=== PATIENT | male | born 1965 | race Caucasian/White ===

== ENCOUNTER 2016-10-10 06:59 | Day surgery (SDC) | payer OTHER ==
[~2016-10-10] VITALS: Ht 172.7 cm; Wt 69.5 kg
[~2016-10-10 06:59] MED LIST: CHOL100018 PO; FISH1CAP59 PO; MELO-273 PO; MULT-933 PO
[2016-10-10] MEDS ORDERED: LR 1,000 ML IV SCH (07:00)
[2016-10-10] MEDS ORDERED: LIDOCAINE 1% (10mg/ml) 2ml SDV INJ ONE (07:00)
--- OUTSIDE RECORDS SUMMARY | 2016-10-10 07:04 | XMS REPORT | Referral Summary ---
Author Organization Unknown Address Unknown Phone Unavailable Care Team Providers Care Bias Cutter Name Role Phone Louise Kohler Primary Care Physician [phone] Encounter VC Date(s): 11/02/14 - 11/02/14 [facility] [place], Card[facility] [address] [place] [address] [place] [address] Discharge Diagnosis: Sleep apnea Discharge Diagnosis: Chest pain Discharge Diagnosis: Dyslipidemia Discharge Diagnosis: Fatigue Discharge Disposition: Home or Self Care Attending Physician: Giovanni Chandler MD Admitting Physician: Giovanni Chandler MD Referring Physician: Brenton Kohler MD Vital Signs Most recent to 1 oldest [Reference Range]: Peripheral Pulse 60 bpm Rate [60-100 bpm] (11/02/14 9:09 AM) Blood Pressure 104/72 mmHg [90-140/60-90 mmHg] (11/02/14 9:09 AM) Problem List Condition Effective Dates Status Health Status Informant Allergic Active rhinitis(Confirmed) Xerosis of Active skin(Confirmed) Atrophoderma Active (disorder)(Confirmed ) Atypical chest pain 07/2010 Active - due to stress(Confirmed) Benign neoplasm of Active skin (disorder)(Confirmed ) Capillary Active hemangioma(Confirmed ) Circumcision(Confirm Resolved ed) Epididymectomy(Confi Resolved rmed) Epididymitis(Confirm Active ed) Large sun Active exposure/2-3 serious sunburns/uses sunscreen(Confirmed) History of Active BPH(Confirmed) Hemangioma Active (disorder)(Confirmed ) History of inguinal Resolved hernia repair(Confirmed) Hyperglyceridemia(Co Active nfirmed) Erectile Active dysfunction(Confirme d) Lentigo(Confirmed) Active Metatarsalgia of Active right foot(Confirmed) Mitral valve Active disorders(Confirmed) Mixed Active hyperlipidemia(Confi rmed) Obstructive sleep Active apnea(Confirmed) Orchitis(Confirmed) Active Scrotal pain - Active Right(Confirmed) prostatism(Confirmed Active ) Intermittent Rectal 2012 Active bleeding(Confirmed) Right inguinal 1974 Active hernia(Confirmed) Sexually transmitted Active disease(Confirmed) Nevus(Confirmed) Active Skin tag(Confirmed) Active Sleep Resolved apnea(Confirmed) Solar Active degeneration(Confirm ed) Tubulovillous < 08/13/12 Resolved adenoma(Confirmed) Chicken Active pox(Confirmed) Allergies, Adverse Reactions, Alerts Substance Reaction Severity Status ciprofloxacin Active levofloxacin Active Medications Aleve mg, Oral, 0 Refill(s) Start Date: 11/02/14 Status: Ordered Results No data available for this section Immunizations Vaccine Date Refusal Reason tetanus/diphth/pertuss (Tdap) adult/adol 10/26/09 tetanus-diphth toxoids (Td) adult/adol 10/22/94 Procedures Procedure Date Related Diagnosis Body Site Colonoscopy1 2012 Epididymectomy 2002 Repair of inguinal hernia - RIGHT 1973 Circumcision 1c-scope=tubulovillous adenoma wi high grade dysplasia, tubular adenoma w lo grade dysplasia, diverticula, repeat in 3 years. Social History Social History Type Response Smoking Status Never smoker Assessment and Plan Extracted from: Title: Office Visit Note Author: Toshia Phillips NP Date: 11/02/14 Assessment/Plan 1.Chest pain Aytypical; improved with activity. Likely stress/anxiety related. Pt has had similar symptoms in the past; negative treadmill stress test 2010. Check treadmill stress test in the next 1-2 months as patient reports symptoms have increased in frequency; notify our office if cp worsens. 2.Fatigue Likely related to SKY as he is not wearing CPAP routinely. 3.Sleep apnea Recommend wearing CPAP daily as he can tolerate. 4.Dyslipidemia LDL 123, October 2013. Check FLP at his convenience, same day as stress testing. Routine exercise of 30-45 minutes 4-5 days/week. Low fat diet. F/u in one year. Addendum Feels well overall, though he has had some chest pains that has made him think that he by Chandler, should see me sooner. Episodes of chest pain that seems to occur when he is stressed, but Giovanni Coppola MD not present with activity. He is more active now, doing his farming work. No CP, SOB, on palpitations or lightheadedness. Does experience fatigue, and has not been using his CPAP October 2014 consistently. When he does get chest pain, he will do things like jumping jacks and push 15:23:30 ups that possibly relieves his pain. CDT VSS NAD, Cor: RRR S1S2, Lungs: CTAB, abd nt nd soft, Ext no cce Imp: -Chest pain, atypical. However, it does seem to be worse recently. Check TMST. DDx stress related CP, musculoskeletal pain. Discussed typical features of angina if symptoms become more typical, he is to call me immediately. -Dyslipidemia, encouraged heart healthy diet and exercise. Check chol profile. -Fatigue, likely related to SKY -SKY, encouraged CPAP use as much as possible. Referrals to Other Providers Referred by: Toshia Phillips NP
--- OUTSIDE RECORDS SUMMARY | 2016-10-10 07:04 | XMS REPORT | Referral Summary ---
Author Author [facility] Organization [facility] Address Unknown Phone Unavailable Care Team Providers Care Cocoa Bean Roaster Helper Name Role Phone Louise Kohler Primary Care Physician [phone] Encounter Date(s): 12/27/14 - 12/27/14 [facility] [place] [address] [place] [address] [place] [address] Discharge Diagnosis: Fatigue Discharge Diagnosis: ED (erectile dysfunction) Discharge Diagnosis: Special screening, prostate cancer Discharge Disposition: 01-Home or Self Care Attending Physician: Nuno Up JR, MD Vital Signs Most recent to 1 oldest [Reference Range]: Peripheral Pulse 68 bpm Rate [60-100 bpm] (12/27/14 9:15 AM) Blood Pressure 126/74 mmHg [90-140/60-90 mmHg] (12/27/14 9:15 AM) SpO2 98 % (12/27/14 9:15 AM) Problem List Condition Effective Dates Status [...] Intermittent Rectal 2012 Active bleeding(Confirmed) Right inguinal 1973 Active hernia(Confirmed) Sexually transmitted Active disease(Confirmed) Nevus(Confirmed) Active Skin tag(Confirmed) Active Sleep Resolved apnea(Confirmed) Solar Active degeneration(Confirm ed) Tubulovillous < 08/13/12 Resolved adenoma(Confirmed) Chicken Active pox(Confirmed) Allergies, Adverse Reactions, Alerts Substance Reaction Severity Status ciprofloxacin Active levofloxacin Active Medications Aleve mg, Oral, 0 Refill(s) Start Date: 11/02/14 Status: Ordered Split Night Sleep Study Split Night Sleep Study, See Instructions, DX: Sleep Apnea 780.57 FAX TO [phone], # 1 Each, 0 Refill(s) Start Date: 03/14/15 Status: Ordered Results Chemistry Most recent to 1 oldest [Reference Range]: Testosterone Tot 689 ng/dL [221-716 ng/dL] (12/27/14 9:35 AM) PSA (wihout Reflex 1.3 ng/mL 1 Free) [0.0-3.5 (12/27/14 9:10 AM) ng/mL] TSH with Reflex Free 0.59 T4 [0.35-4.94] (12/27/14 9:35 AM) 1Result Comment: AUA PSA Best Practice Guidelines: Age-Adjusted PSA Values by Ethnic Group Age Range Asians - Caucasians Americans 40-49 0-2.0 0-2.0 0-2.5 50-59 0-3.0 0-4.0 0-3.5 60-69 0-4.0 0-4.5 0-4.5 70-79 0-5.0 0-5.5 0-6.5 Immunizations Vaccine Date Refusal Reason tetanus/diphth/pertuss (Tdap) adult/adol 10/26/09 tetanus-diphth toxoids (Td) adult/adol 10/22/94 Procedures Procedure Date Related Diagnosis Body Site Collection of venous blood by venipuncture 12/27/14 Colonoscopy1 2012 Epididymectomy 2002 Repair of inguinal hernia - RIGHT 1973 Circumcision 1c-scope=tubulovillous adenoma wi high grade dysplasia, tubular adenoma w lo grade dysplasia, diverticula, repeat in 3 years. Social History Social History Type Response Smoking Status Never smoker Assessment and Plan Extracted from: Title: Ambulatory Patient Education Author: Nuno Up JR, MD Date : 12/27/14 Follow Up With: Where: When: Brenton Kohler [address]; [facility] [place] [address] Business (1) Within 3 to 5 days Comments: Follow Up With: Where: When: Nuno Up [address]; [facility] [place], [place] [address] Business (1) In 6 months 06/28/2015 Comments: Extracted from: Title: Office Visit Note Author: Nuno Up JR, MD Date: 12/27/14 Assessment/Plan ED (erectile dysfunction) I ordered serum testosterone and thyroid function studies today. He has some Cialis at home I told him to take the Cialis 1 Tablet of the 10 mg 2 hours prior to sexual intercourse on an empty stomach. Ordered: Office Visit Level 4 Est 52338 Fatigue Blood works ordered (thyroid function studies and serum testosterone. Ordered: Office Visit Level 4 Est 06771 Testosterone Level Total TSH with Reflex Free T4 Special screening, prostate cancer PSA done today I don't have that report yet Patient instructed to call me on Friday afternoon about the report of the blood tests ordered today. Will have more discussion when the blood work is available this coming Friday afternoon. This was a 30 minute face to face visit with 1/2 of the visit devoted to counseling the patient. afternoon
--- OUTSIDE RECORDS SUMMARY | 2016-10-10 07:04 | XMS REPORT | Referral Summary ---
Author Author [facility] Organization [facility] Address Unknown Phone Unavailable Care Team Providers Care Fitness Assistant Name Role Phone Louise Kohler Primary Care Physician [phone] Encounter Date(s): 07/26/15 - 07/26/15 [facility] [address] [place] [address] Discharge Diagnosis: Acute upper respiratory infection Discharge Disposition: 01-Home or Self Care Attending Physician: Marilyn Butterfield PA-C Admitting Physician: Marilyn Butterfield PA-C Vital Signs Most recent to 1 oldest [Reference Range]: Temperature Tympanic 36.7 degC [36.6-38.1 degC] (07/26/15 10:54 AM) Peripheral Pulse 85 bpm Rate [60-100 bpm] (07/26/15 10:54 AM) Blood Pressure 102/58 mmHg [90-140/60-90 mmHg] (07/26/15 10:54 AM) SpO2 98 % (07/26/15 10:54 AM) Problem List Condition Effective Dates Status [...] Active Right(Confirmed) prostatism(Confirmed Active ) Intermittent Rectal 2013 Active bleeding(Confirmed) Right inguinal 1974 Active hernia(Confirmed) [...] Instructions, DX: Sleep Apnea 780.57 FAX TO [phone], # 1 Each, 0 Refill(s) Start Date: 03/14/15 Status: Ordered Tessalon Perles 100 mg oral capsule 100 mg 1 caps, Oral, TID, as needed for cough, X 7 days, # 21 caps, 0 Refill(s) , Pharmacy: [facility], 1 caps Oral TID,x7 days,PRN:as needed for cough Start Date: 07/26/15 Stop Date: 08/02/15 Status: Ordered Results No data available for [...] Extracted from: Title: Ambulatory Patient Education Author: Marilyn Butterfield PA-C Date : 07/26/15 ENT Upper Respiratory Infection, Adult An upper respiratory infection (URI) is also sometimes known as the common cold. The upper respiratory tract includes the nose, sinuses, throat, trachea, and bronchi. Bronchi are the airways leading to the lungs. Most people improve within 1 week, but symptoms can last up to 2 weeks. A residual cough may last even longer. CAUSES Many different viruses can infect the tissues lining the upper respiratory tract. The tissues become irritated and inflamed and often become very moist. Mucus production is also common. A cold is contagious. You can easily spread the virus to others by oral contact. This includes kissing, sharing a glass, coughing, or sneezing. Touching your mouth or nose and then touching a surface, which is then touched by another person, can also spread the virus. SYMPTOMS Symptoms typically develop 1 to 3 days after you come in contact with a cold virus. Symptoms vary from person to person. They may include: Runny nose. Sneezing. Nasal congestion. Sinus irritation. Sore throat. Loss of voice (laryngitis). Cough. Fatigue. Muscle aches. Loss of appetite. Headache. Low-grade fever. DIAGNOSIS You might diagnose your own cold based on familiar symptoms, since most people get a cold 2 to 3 times a year. Your caregiver can confirm this based on your exam. Most importantly, your caregiver can check that your symptoms are not due to another disease such as strep throat, sinusitis, pneumonia, asthma, or epiglottitis. Blood tests, throat tests, and X-rays are not necessary to diagnose a common cold, but they may sometimes be helpful in excluding other more serious diseases. Your caregiver will decide if any further tests are required. RISKS AND COMPLICATIONS You may be at risk for a more severe case of the common cold if you smoke cigarettes, have chronic heart disease (such as heart failure) or lung disease ( such as asthma), or if you have a weakened immune system. The very young and very old are also at risk for more serious infections. Bacterial sinusitis, middle ear infections, and bacterial pneumonia can complicate the common cold. The common cold can worsen asthma and chronic obstructive pulmonary disease ( COPD). Sometimes, these complications can require emergency medical care and may be life-threatening. PREVENTION The best way to protect against getting a cold is to practice good hygiene. Avoid oral or hand contact with people with cold symptoms. Wash your hands often if contact occurs. There is no clear evidence that vitamin C, vitamin E, echinacea, or exercise reduces the chance of developing a cold. However, it is always recommended to get plenty of rest and practice good nutrition. TREATMENT Treatment is directed at relieving symptoms. There is no cure. Antibiotics are not effective, because the infection is caused by a virus, not by bacteria. Treatment may include: Increased fluid intake. Sports drinks offer valuable electrolytes, sugars, and fluids. Breathing heated mist or steam (vaporizer or shower). Eating chicken soup or other clear broths, and maintaining good nutrition. Getting plenty of rest. Using gargles or lozenges for comfort. Controlling fevers with ibuprofen or acetaminophen as directed by your caregiver. Increasing usage of your inhaler if you have asthma. Zinc gel and zinc lozenges, taken in the first 24 hours of the common cold, can shorten the duration and lessen the severity of symptoms. Pain medicines may help with fever, muscle aches, and throat pain. A variety of non-prescription medicines are available to treat congestion and runny nose. Your caregiver can make recommendations and may suggest nasal or lung inhalers for other symptoms. HOME CARE INSTRUCTIONS Only take [id number] or prescription medicines for pain, discomfort, or fever as directed by your caregiver. Use a warm mist humidifier or inhale steam from a shower to increase air moisture. This may keep secretions moist and make it easier to breathe. Drink enough water and fluids to keep your urine clear or pale yellow. Rest as needed. Return to work when your temperature has returned to normal or as your caregiver advises. You may need to stay home longer to avoid infecting others. You can also use a face mask and careful hand washing to prevent spread of the virus. SEEK MEDICAL CARE IF: After the first few days, you feel you are getting worse rather than better. You need your caregiver's advice about medicines to control symptoms. You develop chills, worsening shortness of breath, or brown or red sputum. These may be signs of pneumonia. You develop yellow or brown nasal discharge or pain in the face, especially when you bend forward. These may be signs of sinusitis. You develop a fever, swollen neck glands, pain with swallowing, or white areas in the back of your throat. These may be signs of strep throat. SEEK IMMEDIATE MEDICAL CARE IF: You have a fever. You develop severe or persistent headache, ear pain, sinus pain, or chest pain. You develop wheezing, a prolonged cough, cough up blood, or have a change in your usual mucus (if you have chronic lung disease). You develop sore muscles or a stiff neck. Document Released: 12/24/2001 Document Revised: 09/21/2012 Document Reviewed: ExitCare Patient Information 2015 [employer]. This information is not intended to replace advice given to you by your health care provider. Make sure you discuss any questions you have with your health care provider. No follow up information was provided. Extracted from: Title: Office Visit Note- URI Author: Marilyn Butterfield PA-C Date: 07/26 Assessment/Plan Acute upper respiratory infection D/w pt that seems to be viral in nature. He would like to try some Rx cough medication, and will prescribe Tessalon. Continue to push fluids and rest. Call by end of week if not much better. Ordered: Office Visit Level 3 Est 95172 Orders: benzonatate, 100 mg 1 caps, Oral, TID, as needed for cough, X 7 days, # 21 caps, 0 Refill(s), Pharmacy: [facility], 1 caps Oral TID,x7 days,PRN:as needed for cough
--- OUTSIDE RECORDS SUMMARY | 2016-10-10 07:04 | XMS REPORT | Referral Summary ---
Author Author [facility] Organization [facility] Address Unknown Phone Unavailable Care Team Providers Care Clinical Laboratory Science Professor Name Role Phone Louise Kohler Primary Care Physician [phone] Encounter Date(s): 12/27/14 - 12/27/14 [facility] [address] [place] [address] [place] [address] Discharge Diagnosis: Fatigue Discharge Diagnosis: ED (erectile [...] Instructions, DX: Sleep Apnea 780.57 FAX TO [phone], # 1 Each, 0 Refill(s) Start Date: [...] Up With: Where: When: Brenton Kohler [address]; [facility] [place] [address] Business (1) Within 3 to 5 days Comments: Follow Up With: Where: When: Nuno Up [address]; [facility] [place], [place] [address] Business (1) In 6 months 06/28/2015 Comments: [...] stomach. Ordered: Office Visit Level 4 Est 38413 Fatigue Blood works ordered (thyroid function studies and serum testosterone. Ordered: Office Visit Level 4 Est 46041 Testosterone Level Total TSH with Reflex Free [...]
--- OUTSIDE RECORDS SUMMARY | 2016-10-10 07:04 | XMS REPORT | Referral Summary ---
Author Author [facility] [place] Organization [facility] [place] Address Unknown Phone Unavailable Care Team Providers Care Cell Support Operator Name Role Phone Louise Kohler Primary Care Physician [phone] Encounter Date(s): 12/22/14 - 12/22/14 [facility] [place] [address] [place] [address] Discharge Disposition: 01-Home or Self Care Attending Physician: Giovanni Chandler MD Admitting Physician: Giovanni Chandler MD Vital Signs Most recent to 1 oldest [Reference Range]: Peripheral Pulse 76 bpm Rate [60-100 bpm] (12/22/14 10:07 AM) Blood Pressure 115/71 mmHg [90-140/60-90 mmHg] (12/22/14 10:07 AM) Problem List Condition Effective Dates Status [...] Instructions, DX: Sleep Apnea 780.57 FAX TO [phone], # 1 Each, 0 Refill(s) Start Date: 03/14/15 Status: Ordered Results No data available for [...] Smoking Status Never smoker Assessment and Plan No data available for this section
--- OUTSIDE RECORDS SUMMARY | 2016-10-10 07:04 | XMS REPORT | Referral Summary ---
Author Author [facility] Organization [facility] Address Unknown Phone Unavailable Care Team Providers Care Solutions Architect Name Role Phone Louise Kohler Primary Care Physician [phone] Encounter Date(s): 12/27/14 - 12/27/14 [facility] [address] [place] [address] [place] [address] Discharge Diagnosis: Fatigue Discharge Diagnosis: ED (erectile [...] Instructions, DX: Sleep Apnea 780.57 FAX TO [phone], # 1 Each, 0 Refill(s) Start Date: [...] Up With: Where: When: Brenton Kohler [address]; [address] [facility] [place] [address] Business (1) Within 3 to 5 days Comments: Follow Up With: Where: When: Nuno Up [address]; [address] [facility] [place], [place] [address] Business (1) In 6 months 06/28/2015 Comments: [...] stomach. Ordered: Office Visit Level 4 Est 65521 Fatigue Blood works ordered (thyroid function studies and serum testosterone. Ordered: Office Visit Level 4 Est 58556 Testosterone Level Total TSH with Reflex Free [...]
--- OUTSIDE RECORDS SUMMARY | 2016-10-10 07:05 | XMS REPORT | Referral Summary ---
Author Author [facility] Organization [facility] Address Unknown Phone Unavailable Care Team Providers Care Financial Aid Administrator Name Role Phone Louise Kohler Primary Care Physician [phone] Encounter [facility] [id number] Date(s): 07/05/15 - 07/05/15 [facility] [address] [place], [place] [address] Discharge Diagnosis: Nevus Discharge Diagnosis: Lentigines Discharge Diagnosis: Multiple melanocytic nevus Discharge Diagnosis: Itching Discharge Diagnosis: Xerosis of skin Discharge Disposition: 01-Home or Self Care Attending Physician: Eric Mejia MD Admitting Physician: Eric Mejia MD Referring Physician: Brenton Kohler MD Vital Signs No data available for this section Problem List Condition Effective Dates Status Health [...] Instructions, DX: Sleep Apnea 780.57 FAX TO [phone], # 1 Each, 0 Refill(s) Start Date: 03/14/15 Status: Ordered Results No data available for this section Immunizations Vaccine Date Refusal Reason tetanus/diphth/pertuss (Tdap) adult/adol 10/26/09 tetanus-diphth toxoids (Td) adult/adol 10/22/94 Procedures Procedure Date Related Diagnosis Body Site Colonoscopy1 2012 Epididymectomy 2002 Repair of inguinal hernia - RIGHT 1974 Circumcision 1c-scope=tubulovillous adenoma wi high grade dysplasia, tubular adenoma w lo grade dysplasia, diverticula, repeat in 3 years. Social History Social History Type Response Smoking Status Never smoker Assessment and Plan Extracted from: Title: Office Visit Note Author: Eric Mejia MD Date: 07/05/15 Assessment/Plan Itching Lentigines Multiple melanocytic nevus, Nevus Xerosis of skin
--- OUTSIDE RECORDS SUMMARY | 2016-10-10 07:05 | XMS REPORT | Referral Summary ---
Author Author [facility] Organization [facility] Address Unknown Phone Unavailable Care Team Providers Care Snow Plow Tractor Operator Name Role Phone Louise Kohler Primary Care Physician [phone] Encounter Date(s): 07/03/16 - 07/03/16 [facility] [place] [address] [place] [address] Discharge Disposition: 01-Home or Self Care Attending Physician: Brenton Kohler MD Admitting Physician: Brenton Kohler MD Vital Signs Most recent to 1 oldest [Reference Range]: Blood Pressure 104/64 mmHg [90-140/60-90 mmHg] (07/03/16 1:42 PM) Problem List Condition Effective Dates Status Health [...] 0 Refill(s) Start Date: 11/02/14 Status: Ordered Mobic 7.5 mg oral tablet 7.5 mg 1 tabs, Oral, BID, # 60 tabs, 2 Refill(s), Pharmacy: [facility] # [id number], 1 tabs Oral BID Start Date: 07/03/16 Status: Ordered multivitamin Daily, 0 Refill(s) Start Date: 01/02/16 Status: Ordered Results No data available for this section Immunizations Given and Recorded Vaccine Date Status Refusal Reason tetanus/diphth/pertuss (Tdap) adult/adol 10/26/09 Recorded tetanus-diphth toxoids (Td) adult/adol 10/22/94 Recorded Procedures Procedure Date Related Diagnosis Body Site Colonoscopy 08/13/12 Colonoscopy1 2012 Epididymectomy 2002 Repair of inguinal hernia - RIGHT 1974 Circumcision 1c-scope=tubulovillous adenoma wi high grade dysplasia, tubular adenoma w lo grade dysplasia, diverticula, repeat in 3 years. Social History Social History Type Response Smoking Status Never smoker Assessment and Plan No data available for this section
--- OUTSIDE RECORDS SUMMARY | 2016-10-10 07:05 | XMS REPORT | Referral Summary ---
Author Author [facility] Organization [facility] Address Unknown Phone Unavailable Care Team Providers Care Student Services Vice President Name Role Phone Louise Kohler Primary Care Physician [phone] Encounter Date(s): 12/27/14 - 12/27/14 [facility] [address] [place] [address] [place] [address] Discharge Diagnosis: Fatigue Discharge Diagnosis: ED (erectile [...] Instructions, DX: Sleep Apnea 780.57 FAX TO [phone], # 1 Each, 0 Refill(s) Start Date: [...] Up With: Where: When: Brenton Kohler [address]; Via [facility] [place] [address] Business (1) Within 3 to 5 days Comments: Follow Up With: Where: When: Nuno Up [address]; Via [facility] [place], [place] [address] Business (1) In 6 months 06/28/2015 Comments: [...] stomach. Ordered: Office Visit Level 4 Est 16368 Fatigue Blood works ordered (thyroid function studies and serum testosterone. Ordered: Office Visit Level 4 Est [id number] Testosterone Level Total TSH with Reflex Free [...]
--- OUTSIDE RECORDS SUMMARY | 2016-10-10 07:05 | XMS REPORT | Referral Summary ---
Author Author [facility] Organization [facility] Address Unknown Phone Unavailable Care Team Providers Care Formation Testing Operator Name Role Phone Louise Kohler Primary Care Physician [phone] Encounter Date(s): 12/22/14 - 12/22/14 [facility] [address] [place] [address] Discharge Disposition: 01-Home or Self Care Attending [...] Instructions, DX: Sleep Apnea 780.57 FAX TO [phone], # 1 Each, 0 Refill(s) Start Date: [...]
--- OUTSIDE RECORDS SUMMARY | 2016-10-10 07:05 | XMS REPORT | Referral Summary ---
Author Author [facility] Organization [facility] Address Unknown Phone Unavailable Care Team Providers Care Inspector Outside Production Name Role Phone Louise Kohler Primary Care Physician [phone] Encounter Date(s): 07/19/16 - 07/19/16 [facility] [address], [place] [address] Discharge Diagnosis: Itching Discharge Diagnosis: Capillary hemangioma Discharge Diagnosis: Lentigines Discharge Diagnosis: Multiple benign nevi Discharge Diagnosis: Multiple melanocytic nevus Discharge Disposition: 01-Home or Self Care Attending [...] BID, # 60 tabs, 2 Refill(s), Pharmacy: [facility] # [id number], 1 tabs Oral BID Start Date: 07/03/16 Status: Ordered multivitamin Daily, 0 Refill(s) Start Date: 01/02/16 Status: Ordered triamcinolone 0.025% topical cream See Instructions, apply qd prn itch, # 454 mg, 1 Refill(s), Pharmacy: [facility] Start Date: 07/19/16 Status: Ordered Results No data available for [...] Visit Note Author: Eric Mejia MD Date: 07/19/16 Assessment/Plan Capillary hemangioma Itching Lentigines Multiple benign nevi, Multiple melanocytic nevus
--- OUTSIDE RECORDS SUMMARY | 2016-10-10 07:05 | XMS REPORT | Referral Summary ---
Author Author [facility] Organization [facility] Address Unknown Phone Unavailable Care Team Providers Care Telegraph Plant Maintainer Name Role Phone Louise Kohler Primary Care Physician [phone] Encounter Date(s): 12/27/14 - 12/27/14 [facility] [address] [place] [address] [place] [address] Discharge Diagnosis: Fatigue Discharge Diagnosis: [...] Instructions, DX: Sleep Apnea 780.57 FAX TO [phone], # 1 Each, 0 Refill(s) Start Date: [...] [address]; Via [facility] [place] [address] Business (1) Within 3 to 5 days Comments: Follow Up With: Where: When: [facility] [address]; Via [facility] [place], [place] [address] Business (1) In 6 months 06/28/2015 Comments: [...] stomach. Ordered: Office Visit Level 4 Est [id number] Fatigue Blood works ordered (thyroid function studies and serum testosterone. Ordered: Office Visit Level 4 Est [id number] Testosterone Level Total TSH with Reflex Free [...]
--- OUTSIDE RECORDS SUMMARY | 2016-10-10 07:05 | XMS REPORT | Continuity of Care Document ---
Author Author [facility] Organization [facility] Address Unknown Phone Unavailable Allergies Active Description Code Type Severity Reaction Onset Reported/Identified Relationship to Patient Clinical Status Yes ciprofloxacin NKMA N/A N/A 11/10/2013 Yes levofloxacin NKMA N/A N/A 11/10/2013 Medications Problems Procedures Results Encounters ACCT No. Visit Date/Time Discharge Status Pt. Type Provider Facility Loc./Unit Complaint [id number] 08/24/2013 10:08:00 08/24/2013 23 :59:59 CLS Outpatient
--- OUTSIDE RECORDS SUMMARY | 2016-10-10 07:05 | XMS REPORT | Referral Summary ---
Author Author [facility] Organization [facility] Address Unknown Phone Unavailable Care Team Providers Care Manager Respiratory Name Role Phone Louise Kohler Primary Care Physician [phone] Encounter Date(s): 12/27/14 - 12/27/14 [facility] [address] [place] [address] [place] [address] Discharge Diagnosis: Fatigue Discharge Diagnosis: ED [...] Instructions, DX: Sleep Apnea 780.57 FAX TO [phone], # 1 Each, 0 Refill(s) Start Date: [...] Up With: Where: When: Brenton Kohler [address]; Via [facility] [place] [address] Business (1) Within 3 to 5 days Comments: Follow Up With: Where: When: N[facility] [address]; [facility] [place], [place] [address] Business (1) In 6 months 06/28/2015 Comments: [...] stomach. Ordered: Office Visit Level 4 Est 00762 Fatigue Blood works ordered (thyroid function studies and serum testosterone. Ordered: Office Visit Level 4 Est 60961 Testosterone Level Total TSH with Reflex Free [...]
--- OUTSIDE RECORDS SUMMARY | 2016-10-10 07:05 | XMS REPORT | Referral Summary ---
Author Author [facility] Organization [facility] Address Unknown Phone Unavailable Care Team Providers Care Human Resources Manager Manufacturing Name Role Phone Louise Kohler Primary Care Physician [phone] Encounter Date(s): 12/27/14 - 12/27/14 [facility] [address] [place] [address] [place] [address] Discharge Diagnosis: Fatigue Discharge Diagnosis: [...] Instructions, DX: Sleep Apnea 780.57 FAX TO [phone], # 1 Each, 0 Refill(s) Start Date: [...] Up With: Where: When: Brenton Kohler [address]; [address] [facility] [place] [address] Business (1) Within 3 to 5 days Comments: Follow Up With: Where: When: N[facility] Up [address]; [address] [facility] [place], [place] [address] Business (1) In 6 months 06/28/2015 Comments: [...] stomach. Ordered: Office Visit Level 4 Est [id number] Fatigue Blood works ordered (thyroid function studies and serum testosterone. Ordered: Office Visit Level 4 Est [id number] Testosterone Level Total TSH with Reflex Free [...]
--- OUTSIDE RECORDS SUMMARY | 2016-10-10 07:05 | XMS REPORT | Referral Summary ---
Author Author [facility] Organization [facility] Address Unknown Phone Unavailable Care Team Providers Care Pluck Trimmer Name Role Phone Louise Kohler Primary Care Physician [phone] Encounter Date(s): 12/27/14 - 12/27/14 [facility] [address] [place] [address] [place] [address] Discharge Diagnosis: Fatigue Discharge Diagnosis: [...] Instructions, DX: Sleep Apnea 780.57 FAX TO [phone], # 1 Each, 0 Refill(s) Start Date: [...] Up With: Where: When: Brenton Kohler [address]; Via [facility] [place] [address] Business (1) Within 3 to 5 days Comments: Follow Up With: Where: When: Nuno Up [address]; Via [facility] [place], [place] [address] Business (1) In 6 months 06/28/2015 Comments: [...] stomach. Ordered: Office Visit Level 4 Est 05106 Fatigue Blood works ordered (thyroid function studies and serum testosterone. Ordered: Office Visit Level 4 Est 44730 Testosterone Level Total TSH with Reflex Free [...]
--- OUTSIDE RECORDS SUMMARY | 2016-10-10 07:05 | XMS REPORT | Referral Summary ---
Author Author [facility] Organization [facility] Address Unknown Phone Unavailable Care Team Providers Care System Software Developer Name Role Phone Louise Kohler Primary Care Physician [phone] Encounter Date(s): 12/27/14 - 12/27/14 [facility] [address] [place] [address] [place] [id number] Discharge Diagnosis: Fatigue Discharge Diagnosis: ED [...] Instructions, DX: Sleep Apnea 780.57 FAX TO [phone], # 1 Each, 0 Refill(s) Start Date: [...] Up With: Where: When: Brenton Kohler [address]; Via [facility] [place] [address] Business (1) Within 3 to 5 days Comments: Follow Up With: Where: When: N[facility] Up [address]; Via [facility] [place], [place] [address] Business (1) In 6 months 06/28/2015 Comments: [...] stomach. Ordered: Office Visit Level 4 Est [id number] Fatigue Blood works ordered (thyroid function studies and serum testosterone. Ordered: Office Visit Level 4 Est 06605 Testosterone Level Total TSH with Reflex Free [...]
--- OUTSIDE RECORDS SUMMARY | 2016-10-10 07:05 | XMS REPORT | Continuity of Care Document ---
Author Author Brenton Kohler MD Organization [facility] Address [address] [place] [address] Phone Care Team Providers Care Finish Photographer Name Role Phone Brenton Kohler PP Unavailable Chandler, Giovanni RP Unavailable Payers Payer name Insurance type Covered alliance party ID Authorization(s) Unknown Problems Condition Effective Dates (start - stop) Clinical Status Noninfectious Gastroenteritis - *Acute Hemorrhage of rectum and anus - New onset Blood in stool - Intermittent Upper Respiratory Infection, Acute - *Acute Sleep Apnea, Obstructive - *Fair Control Sleep Apnea, Obstructive - *Symptomatic 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 HYPERLIPIDEMIA - OBSTRUCTIVE SLEEP APNEA - MITRAL VALVE DISORDER - ALLERGIC RHINITIS NEC - Chest Pain, Unspecified - Atypical Sleep Apnea - *Chronic Other and unspecified hyperlipidemia - *Chronic Benign neoplasm of skin, site unspecified - *Chronic Benign neoplasm of skin, site unspecified - *Stable Hemangioma of unspecified site - Asymptomatic Unspecified hypertrophic and atrophic conditions of skin - Asymptomatic Other specified diseases of sebaceous glands - *Chronic Benign neoplasm of skin, site unspecified - *Stable 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 Lentigo - *Stable Sleep Apnea, Obstructive - *Symptomatic Orchitis and epididymitis, unspecified - *Controlled BPH - Asymptomatic Family History Family Member Diagnosis Age At Onset Status Mother () Emphysema 70 (Unknown) Father (Alive) Emphysema (Unknown) Maternal grandmother (Alive) Diabetes (Unknown) Sister (Alive) Asthma (Unknown) Maternal grandfather (Alive) Asthma (Unknown) Social History Social History Element Description Quantity alcohol beer & wine 4 beers Allergies, Adverse Reactions, Alerts Substance Reaction Severity Status CIPROFLOXACIN Unknown LEVOFLOXACIN Unknown Medications Medication Instructions Dosage Effective Dates (start - stop) Status Unknown Immunizations Vaccine Date Status Comments Unknown Results Test Name Date and Time Measure Units Reference Range Abnormal Flag Comments Unknown Vital Signs Date / Time: Height Weight Pulse Rate Blood Pressure Temperature /10:15:00 70.00 in 156.00 lbs 124/80 mm[Hg] 97.0 F Procedures Procedure Date Unknown Encounters Encounter Location Date Patient Visit [facility] Patient Visit [facility] Surg Patient Visit [facility] Patient Visit [facility] Patient Visit [facility] Patient Visit Conversion Patient Visit [facility] Card Patient Visit [place] [address] Derm Patient Visit [facility] Derm Patient Visit [facility] Patient Visit [facility] Urology Advance Directives Directive Effective Date Unknown
--- OUTSIDE RECORDS SUMMARY | 2016-10-10 07:05 | XMS REPORT | Referral Summary ---
Author Author [facility] Organization [facility] Address Unknown Phone Unavailable Care Team Providers Care Adjunct Psychology Faculty Member Name Role Phone Louise Kohler Primary Care Physician [phone] Encounter [facility] [id number] Date(s): 01/10/16 - 01/10/16 [facility] [address] [place] [address] [place] [address] Discharge Diagnosis: Atypical chest pain - due to stress Discharge Diagnosis: Situational stress Discharge Disposition: 01-Home or Self Care Attending Physician: Teofilo English MD Admitting Physician: Teofilo English MD Vital Signs Most recent to 1 oldest [Reference Range]: Peripheral Pulse 68 bpm Rate [60-100 bpm] (01/10/16 10:00 AM) Blood Pressure 100/60 mmHg [90-140/60-90 mmHg] (01/10/16 10:00 AM) Problem List Condition Effective Dates Status [...] 0 Refill(s) Start Date: 11/02/14 Status: Ordered multivitamin Daily, 0 Refill(s) Start Date: 01/02/16 Status: Ordered Split Night Sleep Study Split Night Sleep Study, See Instructions, DX: Sleep Apnea 780.57 FAX TO [phone], # 1 Each, 0 Refill(s) Start Date: [...] Extracted from: Title: Office Visit Note Author: Teofilo English MD Date: 01/10/16 Assessment/Plan 1.Atypical chest pain - due to stress 2.Situational stress Discussion: This man actually has a very low likelihood of disease. His symptom is very atypical and he has had relatively recent stress testing and it doesn't appear necessary to put into any testing at this point. I think that we can reassure him. We offered him some suggestions regarding anxiety management includingdoing regular physical activity.
[2016-10-10 07:35] VITALS: Ht 172.7 cm; Wt 69.5 kg
[2016-10-10 07:36] VITALS: BP 117/67; PULSE 73; RESP 16; TEMP 97.7; O2SAT 98
[2016-10-10] MEDS ORDERED: FLEET PHOSPHO-SODA 133 ML ENEMA RECTALLY PRN (08:15)
--- NOTE | 2016-10-10 08:39 | ANESPREOP ---
Anesthesia Record Date and Time DATE: 10/10/16 TIME: 08:37 Pre-Op Diagnosis hx. of polyps Proposed Surgical Procedure COLONOSCOPY Allergies: Coded Allergies: ciprofloxacin (Verified Allergy, Unknown, NAUSEA, 10/10/16) ciprofloxacin HCl (Verified Allergy, Unknown, NAUSEA, 10/10/16) levofloxacin (Verified Allergy, Unknown, NAUSEA, 10/10/16) Ht/Wt/BMI Height: 5 ' 8.00 " Weight: 69.500 kg BMI: 23.3 kg/m2 Vital Signs Date Time Temp Pulse Resp B/P Pulse Ox O2 Delivery O2 Flow Rate FiO2 10/10/16 07:36 97.7 73 16 117/67 98 Room Air Medications Inpatient Medications Current Medications Medications (Trade) Dose Ordered Sig/Lino Start Time Stop Time Status Last Admin Dose Admin Lactated Ringer's (Lactated Ringers) 1,000 ml @ 30 mls/hr Q24H 10/10/16 07:00 10/10/16 08:02 30 MLS/HR Sodium Biphosphate/ Sodium Phosphate (Fleet Enema Saline) 1 enema PRN PRN 10/10/16 08:15 10/10/16 08:20 1 ENEMA Cholecalciferol (Vitamin D3) 1,000 Unit Tablet, 1 TAB PO DAILY, (Reported) Last Taken: on 10/08/16 Fish Oil/Dha/Epa (Fish Oil 1,200 mg Fish Oil) 1 Each Capsule, 1,200 MG PO DAILY, (Reported) Last Taken: on 10/07/16 Meloxicam (Meloxicam) 7.5 Mg Tablet, 1 TAB PO DAILY , (Reported) Last Taken: on 10/06/16 Multivitamin (Multi-Day Vitamins) 1 Each Tablet, 1 TAB PO DAILY, (Reported) Last Taken: on 10/08/16 Currently on Beta Kobe: No Medical/Surgical History Anesthesia PMH: Reports: Arthritis, Sleep Apnea (DOESN'T WEAR A CPAP), Denies: *Angina, *Diabetes, *Dyspnea, *Hypertension, *[place], Anesthesia Reactions (NO AIRWAY ISSUES), Asthma, CHF, COPD, CVA/Stroke/TIA, Cancer, Clotting Problems, Deep Vein Thrombosis, Glaucoma, Hepatitis, Hiatal Hernia, Malignant Hyperthermia , Pneumonia, Reflux, Renal Disease, Seizures, Thyroid Disease, Tuberculosis Smoking Status: Never smoker Has pt. smoked today?: No Use Chewing Tobacco?: No Second Hand Exposure: No Substance Use Type: does not use Substance last used: unknown Alcohol Intake: rarely Last Drink: unknown Past Surgical History Orthopedic Surgeries: No Abdominal Surgeries: Yes - HERNIA SURGERY 1974 Genitourinary Surgeries: Yes - LUMP REMOVED FROM TESTITCLE Cardiac Surgeries: No Endocrine Surgeries: No Reproductive Surgeries: No Neurological Surgeries: No Ear Surgeries: No Nose Surgeries: No Throat Surgeries: No Other Surgeries: No Anesthesia Adverse Reactions: FOUND none Family Hx of Anesthesia Advers: none Hx of Motion Sickness: Yes Pertinent Findings EKG Rhythm: Sinus Rhythm Physical Exam Respiratory: Bilat breath sounds equal, Lungs clear Cardiovascular: FOUND Regular rate, rhythm, FOUND No murmur Airway Assessment Mallampati Score: II TMD: 3 Fingerbreadths Neck Extension: Good Overall Assessment: No Airway Concerns ASA: 2 Plan Anesthesia Plan: TIVA Discussion Discussed risks/options/alternatives of anesthesia and questions answered. Patient consents. Nursing pain assessment noted. Present: Spouse Attestation Statement Prior to the delivery of any anesthetic medication, I examined the patient, developed the plan, obtained the patient's consent and discussed the risk and benefits of the procedure with the patient/guardian. PRASHANT ALFREDO CRNA Oct 10, 2016 08:39
[2016-10-10] MEDS ORDERED: PROPOFOL 500mg 50 ML IV ONE (08:58)
[2016-10-10] MEDS ORDERED: LIDOCAINE 1% (10mg/ml) 2ml SDV ONE (08:58)
[2016-10-10 09:48] VITALS: BP 132/58; PULSE 70; RESP 16; TEMP 96.9; O2SAT 98
[2016-10-10 10:03] VITALS: BP 116/71; PULSE 74; RESP 16; O2SAT 94
--- NOTE | 2016-10-10 10:05 | ANESPO ---
Post-Op Note Date 10/10/16 Time: 10:03 Status Pt Participated in Evaluation: Pt participated in person Vital Signs Date Time Temp Pulse Resp B/P Pulse Ox O2 Delivery O2 Flow Rate FiO2 10/10/16 09:48 96.9 70 16 132/58 98 Room Air Respiratory Function: Airway patent, Regular respirations Cardiovascular Function: Regular pulse Mental Status: Alert/oriented Pain Level Intensity: 1 Hydration: Taking po fluids, IV infusing Complications during Recovery None apparent Post-Anesthesia Notes pt. [email or web address]. well Follow-Up Instructions Instructions Per Surgeon PRASHANT ALFREDO CRNA Oct 10, 2016 10:05
[2016-10-10 10:18] VITALS: BP 124/72; PULSE 64; RESP 16; O2SAT 99
--- NOTE | 2016-10-10 14:05 | OPNOTEF ---
DATE OF PROCEDURE 10/10/2016 SURGEON Samm Roach MD PREOPERATIVE DIAGNOSIS Personal history for adenomatous colon polyps. POSTOPERATIVE DIAGNOSIS Personal history for adenomatous colon polyps, minimal sigmoid diverticulosis. PROCEDURE Colonoscopy ANESTHESIA TIVA BRIEF HISTORY/INDICATIONS Mr. Butts is a 51-year-old gentleman who has a personal history for adenomatous colon polyps. He was found to have multiple adenomatous colon polyps a little over four years ago. He presents today to undergo a followup colonoscopy. For completeness please refer to notes included in the patient's chart. FINDINGS Upon colonoscopy there was no evidence for angiodysplastic lesions, polyps or ann marie malignancies. The patient was found to have a minimal number of diverticula within the sigmoid colon region. NARRATIVE OF PROCEDURE After informed consent was obtained, the patient was brought to the endoscopy suite and placed on the table in the left lateral decubitus position. The patient subsequently underwent total intravenous anesthesia by the nurse jewelry sales per my request. A formal timeout was then completed. Next, a digital rectal examination was performed. Normal sphincter tone. No rectal masses were appreciated. An Olympus colonoscope was inserted in the anus and advanced with the lumen of the colon under direct visualization at all times until the cecum was ascertained. Triangulation of the tenia coli, ileocecal valve and appendiceal lumen were all visualized. The scope was then slowly withdrawn, again maintaining visualization of the lumen at all times. As stated above, the entire colon was without evidence for angiodysplastic lesions, polyps or ann marie malignancies. The patient was found to have a minimal number of diverticula within the sigmoid colon region. The scope continued to be withdrawn until it was brought forth back into the rectal vault. A J-maneuver was then performed. No worrisome perianal pathology was noted. The scope was allowed to straighten and was withdrawn through the anal verge. The patient tolerated the procedure without difficulty and was sent back to the preoperative area in stable condition. Secondary to the absence of findings upon this colonoscopy and the fact the patient had prior adenomatous colon polyps 3-4 years ago, I would recommend that he undergo a repeat colonoscopy at a 5-year interval. If, upon followup endoscopy, he still is without metachronous colonic polyps, then I do believe at that time he could be returned back to the general guidelines of an every 10-year basis. SHANNON
== END 2016-10-10 10:28 | disposition home or self-care (01) ==
LOC: NSC 06:59
PROVIDERS: ATTEND Surgery
DX: Z12.11 Encounter for screening for malignant neoplasm of colon (principal); K57.30 Diverticulosis of large intestine without perforation or abscess without bleeding; Z86.010 Personal history of colon polyps; G47.33 Obstructive sleep apnea (adult) (pediatric); E78.2 Mixed hyperlipidemia; J30.9 Allergic rhinitis, unspecified; Z79.1 Long term (current) use of non-steroidal anti-inflammatories (NSAID); Z79.899 Other long term (current) drug therapy
CPT/HCPCS: 45378; J7120